=== PATIENT | male | born 1955 | race Caucasian/White ===

== ENCOUNTER 2017-09-19 16:15 | Emergency (ER) | payer SELFPAY ==
--- NOTE | 2017-09-19 16:37 | ED.PDOC ---
History of Present Illness - General Chief Complaint: Upper Extremity Injury Stated Complaint: Ground Level Fall, Injured R shoulder and wrist Time Seen by Provider: 09/19/17 16:30 Source: patient Exam Limitations: no limitations Additional Information: FELL WALKING UP AN EMBANKMENT. NO LOC, C/O PAIN TO R WRIST, R SHOULDER. NO HX ANTICOAGULATION. - History of Present Illness Occurred: just prior to arrival Pain - Upper Extremity: mild: Shoulder, right, moderate: Forearm, right Method of Injury: fell Improving Factors: nothing Worsening Factors: movement Allergies/Adverse Reactions: Allergies NO KNOWN ALLERGY Allergy (Verified 09/19/17 16:32) Home Medications: Ambulatory Orders Acetaminophen W/ Codeine [Tylenol W/ CODEINE #3] 1 ea PO Q6HR PRN #24 09/19/17 Review of Systems - Review of Systems Constitutional: States: no symptoms reported EENTM: States: no symptoms reported Respiratory: States: no symptoms reported Cardiology: States: no symptoms reported Gastrointestinal/Abdominal: Denies: nausea, vomiting Musculoskeletal: States: joint pain. Denies: back pain, neck pain Skin: States: no symptoms reported Neurological: States: no symptoms reported Endocrine: States: no symptoms reported Hematologic/Lymphatic: States: no symptoms reported Family Medical History - Family History Grandparents Family History: Unknown Physical Exam - Physical Exam General Appearance: No apparent distress, Obese Eyes, Ears, Nose, Throat Exam: PERRL/EOMI, normal ENT inspection Neck: non-tender, full range of motion Back Exam: normal inspection, no vertebral tenderness Shoulder Exam: normal inspection, normal ROM - MILD TTP, NO EVIDENCE OF TRAUMA Elbow/Forearm Exam: normal inspection, non-tender, no evidence of injury Wrist Exam: bone tenderness - TENDER DISTAL RADIUS, NO ULNAR TTP, MILD SWELLING , NO HAND INJURY, NVI, NO ECCHYMOSIS, Progress - EKG/XRAY/CT XRAY: - SHOULDER: NEG, WRIST: SMALL AVULSION FX DISTAL RADIUS. Procedures - Splinting Right Arm Hand-Made Type: orthoglass Splint: sugar-tong Pre-Proc Neuro Vasc Exam: normal Post-Proc Neuro Vasc Exam: normal Departure - Departure Clinical Impression: Distal radius fracture, right Qualifiers: Encounter type: initial encounter Fracture type: closed Fracture morphology: other extra-articular Qualified Code(s): S52.551A - Other extraarticular fracture of lower end of right radius, initial encounter for closed fracture ICD-10 Supporting Text: RESTORATIVE CARE Time of Disposition: 18:02 Disposition: Discharge to Home or Self Care Condition: Good Departure Forms: ED Discharge - Pt. Copy, Patient Portal Self Enrollment Instructions: DI for Arm Pain, DI for Distal Radius Fracture Prescriptions: Acetaminophen W/ Codeine [Tylenol W/ CODEINE #3] 1 ea PO Q6HR PRN #24 PRN Reason: Pain Home Medications: Ambulatory Orders Acetaminophen W/ Codeine [Tylenol W/ CODEINE #3] 1 ea PO Q6HR PRN #24 09/19/17 Additional Instructions: FOLLOW UP WITH YOUR FAMILY DOCTOR OR ORTHOPEDIC SURGEON OF CHOICE
--- NOTE | 2017-09-19 17:41 | RAD ---
EXAM DESCRIPTION: Shoulder,Right 2 or More Views CLINICAL HISTORY: FALL WITH PAIN COMPARISON: None. TECHNIQUE: 2 views right FINDINGS: Degenerative changes are observed in the acromioclavicular joint. The glenohumeral joint is normal in appearance. No fracture or dislocation is seen. 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 No fracturing is detected. Electronically signed by: Kash Pollard MD 09/19/2017 5:41 PM CDT
--- NOTE | 2017-09-19 17:48 | RAD ---
EXAM DESCRIPTION: Wrist,Right 3 Views CLINICAL HISTORY: FALL WITH PAIN COMPARISON: None. TECHNIQUE: 3 views right FINDINGS: A avulsive type fracture of the radial styloid process is observed. The exam demonstrates disruption of the scapholunate ligament with widening of the scapholunate joint space. Exam demonstrates evidence of perilunate dislocation. A small bone fragment is seen posterior to the radius. Its donor site is uncertain. IMPRESSION: The exam demonstrates evidence of perilunate dislocation with gross disruption of the scapholunate ligament and a fracture of the radial styloid process Electronically signed by: Kash Pollard MD 09/19/2017 5:47 PM CDT
[2017-09-19 18:30] VITALS: BP 152/99; TEMP 98.8; O2SAT 94
== END 2017-09-19 18:30 | disposition home or self-care (01) ==
LOC: ER 16:15
DX: S52.551A Other extraarticular fracture of lower end of right radius, initial encounter for closed fracture (principal); W17.81XA Fall down embankment (hill), initial encounter